=== PATIENT | male | born 1970 | race Caucasian/White ===

== ENCOUNTER 2016-08-28 12:21 | Emergency (ER) | payer OTHER ==
--- NOTE | 2016-08-28 14:28 | DIAGNOSTIC IMAGING REPORT ---
PROCEDURE: US ABDOMEN ULTRASOUND-LIMITED INDICATION: RUQ PAIN TECHNIQUE: Elder scale and color Doppler sonographic images were obtained of the right upper quadrant. COMPARISON: 11/12/2015 FINDINGS: The liver is normal in size, contour, and echotexture. No mass or biliary dilatation. The gallbladder is normal without stones or sludge. Normal wall thickness at 1.8 mm. No pericholecystic fluid or Fall's sign. Normal common duct at 5 mm. The visible portion of the inferior vena cava, abdominal aorta, and portal vein appear normal with appropriate direction of flow in the portal vein. The right kidney is normal measuring 10.5 cm. No free fluid in the right upper quadrant. IMPRESSION: 1. Normal right upper quadrant ultrasound.
--- NOTE | 2016-08-28 17:53 | ED CLINICAL REPORT ---
Clinical Report - Physicians/Mid Levels [facility] [address] [place] [address] 08/28/2016 12:22 Patient: ROLANDO MAGUIRE Time Seen: 12:47 Aug 16 2016. Arrived- By private vehicle. HISTORY OF PRESENT ILLNESS Chief Complaint: ABDOMINAL PAIN and FLANK PAIN. This started months, worsening today. It is described as "pain" and it is described as located in the right flank. No nausea or loss of appetite. (patient reports right-sided abdominal pain over the last year, worsening over the last few days, unable to walk as pain is severe. Patient denies any nausea vomiting diarrhea. Reports similar history of pain. Denies any dysuria, urgency or frequency. Patient denies any sick contacts. Reports history of hepatitis C. Unclear per patient of how he contracted such. Patient reports history of attending a liver clinic, however has not attended centrally over the last few months, due to some appointment issues. Denies taking any medications. Denies drinking. Patient uses marijuana.). REVIEW OF SYSTEMS No constipation, difficulty with urination, pain with urination or chest pain. All systems otherwise negative, except as recorded above. PAST HISTORY Problems: Abdominal Pain. Hepatitis. Contact Dermatitis. Wound Check. Laceration. Corneal Abrasion. Eye Pain. Contusion. Puncture Wound. Healing Abscess. Cellulitis. Abscess. Infections. Immunizations. Acute Pain. Tetanus Status. MRSA Infection. Neck Pain. Back Pain. Knee pain. Additional Surgeries: Laparotomy. Medications: None. Allergies: No Known Drug Allergy. SOCIAL HISTORY History of drug use: marijuana. No alcohol use. ADDITIONAL NOTES The nursing notes have been reviewed. PHYSICAL EXAM Vital Signs: 08/28/2016 12:36 BP: 131/81. HR: 67. RR: 20. O2 saturation: 98%. Temp: 97.8 F. Pain level now: 10/10. Appearance: Alert. ENT: Ears normal. Nose normal. Neck: Normal inspection. Neck supple. CVS: Normal heart rate and rhythm. Heart sounds normal. Respiratory: No respiratory distress. Breath sounds normal. No decreased air movement. Abdomen: Moderate tenderness in the right upper quadrant and right side of the abdomen. No guarding or Fall's sign present. Back: Normal inspection. No CVA tenderness. Skin: Skin warm. Normal skin color. Neuro: Oriented X 3. LABS, X-RAYS, AND EKG Abdominal CT: IMPRESSION: 1. Negative CT abdomen and pelvis. 2. Findings discussed with ANTONIO Yost. All CT scans at this facility use dose modulation, iterative reconstruction, and/or weight-based dosing when appropriate to reduce radiation dose to as low as reasonably achievable. Electronically Final signed by:Leroy Ford MD 08/28/2016 5:48:08 PM. Laboratory Tests: UA-Culture if indicated: (MIGUEL: 08/28/2016 14:05) ( [facility] 08/28/2016 14:54) Final results Test Result Flag Units (Reference) URINE COLOR YELLOW URINE APPEARANCE CLEAR URINE GLUCOSE NEGATIVE (NEGATIVE) URINE BILIRUBIN NEGATIVE (NEGATIVE) URINE KETONE NEGATIVE (NEGATIVE) URINE SPECIFIC GRAVITY 1.015 (1.010-1.030) URINE PH 7.0 (5.0-8.0) URINE PROTEIN NEGATIVE (NEGATIVE) URINE UROBILINOGEN 0.2 EU/dL (0.2-1.0) URINE NITRITE NEGATIVE (NEGATIVE) URINE BLOOD NEGATIVE (NEGATIVE) URINE LEUK ESTERASE NEGATIVE (NEGATIVE) URINE RBC RARE rbc/hpf (0-1) URINE WBC NONE SEEN wbc/hpf (0-1) URINE EPITHELIAL CELLS RARE EPI/hpf (0-5) URINE BACTERIA NONE SEEN (NONE SEEN) URINE COMMENT CULT NOT INDICATED URINE CULTURES ARE SET-UP BASED ON THE FOLLOWING CRITERIA:POSITIVE NITRITEPOSITIVE LEUKOCYTE ESTERASEGREATER THAN 10 WHITE BLOOD CELLSMODERATE (2+) OR GREATER BACTERIA CBC w Diff: (MIGUEL: 08/28/2016 12:45) ( [facility] 08/28/2016 13:06) Final results Test Result Flag Units (Reference) WHITE BLOOD COUNT 9.5 K/uL (4.5-11.5) RED BLOOD COUNT 5.23 M/uL (4.50-5.90) HEMOGLOBIN 15.7 gm/dL (13.5-17.5) HEMATOCRIT 46.6 % (41.0-53.0) MEAN CELL VOLUME 89 fL (80-100) MEAN CORPUSCULAR HGB 30 pg (26-34) MEAN CORPUSCULAR HGB CONC 34 g/dL (31-37) RED CELL DISTRIBUTION WIDTH 14.0 % (11.6-14.8) PLATELET COUNT 287 K/uL (150-400) NEUTROPHIL % 68.4 % (50-75) LYMPH % 23.2 L % (25-40) MONO % 5.6 % (3-14) EOSINOPHIL % 2.3 % (0-4) BASOPHIL % 0.5 % (0-2) CMP: (MIGUEL: 08/28/2016 12:45) ( MsgRcvd 08/28/2016 13:13) Final results Test Result Flag Units (Reference) GLUCOSE 117 H mg/dL (70-110) BUN 13 mg/dL (7-18) CREATININE 0.8 mg/dL (0.6-1.3) Estimated GFR >60 mL/min Estimated GFR- >60 mL/min Note: Persistent reduction over 3 months in eGFR<60 mL/min/1.73 m2 defines CKD. Patients with eGFR values>=60 mL/min/1.73 m2 may also have CKD if evidence ofpersistent proteinuria. Additional information may be foundat www.kidney.org. SODIUM 139 mmol/L (136-145) POTASSIUM 3.9 mmol/L (3.5-5.1) CHLORIDE 104 mmol/L (98-107) CARBON DIOXIDE 28 mmol/L (21-32) CALCIUM 8.3 L mg/dL (8.5-10.1) TOTAL PROTEIN 7.3 g/dL (6.4-8.2) ALBUMIN 3.8 g/dL (3.3-5.0) BILIRUBIN, TOTAL 0.4 mg/dL (0.0-1.0) ALKALINE PHOSPHATASE 61 U/L (46-116) AST (SGOT) 35 U/L (15-37) ALT (SGPT) 70 U/L (12-78) LIPASE 109 U/L (73-393) . Note - Tests: (US: abd limited: IMPRESSION: 1. Normal right upper quadrant ultrasound. Electronically Final signed by:Bryanna Hammond MD 08/28/2016 2:28:16 PM). PROGRESS AND PROCEDURES Course of Care: During the time in the ED, the following DDX were considered: acute surgical abdomen, hemodynamic or metabolic instability, dehydration, gastroenteritis-viral, food borne, or bacterial, food intolerance, irritable or inflammatory bowel, infection, sepsis. 08/28/2016 17:50 BP: 113/74. HR: 60. RR: 18. O2 saturation: 98%. Temp: 98.4 F. Patient is stable. Symptoms better. Patient/family counseled. Disposition: Discharged. CLINICAL IMPRESSION Acute right upper quadrant abdominal pain of unknown cause. INSTRUCTIONS Drink plenty of fluids. (follow up with your DR Address: [address] [place] [id number] ). Prescription Medications: Zofran (orally disintegrating tablets) 4 mg: take 1 orally every 6 hours for 3 days as needed for nausea. Dispense ten (10). No refill. Substitution is permissible. (Electronically signed by Veronica Betts P.A.-C 08/28/2016 18:11)
--- NOTE | 2016-08-28 17:53 | ED ORDER SUMMARY ---
..... Patient: ROLANDO MAGUIRE OrderSheet [facility]ly [facility] VisitID: [id number] [place] [address] 46y, M Registration Date/Time: 08/28/2016 ORDER SHEET Weight: 79.3 kg (stated) Allergies: No Known Drug Allergy GENERAL ORDERS: US Abdomen Limited (No) Urgent (12:43 08/28/2016 EKoroleva P.A.-C) (Ack 12:47 OSnell) (14:13 OSnell) CBC w Diff Urgent (12:43 08/28/2016 EKoroleva P.A.-C) (Ack 12:47 OSnell) (12:51 MWinterer R.N.) CMP Urgent (12:43 08/28/2016 EKoroleva P.A.-C) (Ack 12:47 OSnell) (12:51 MWinterer R.N.) UA-Culture if indicated Urgent (12:43 08/28/2016 EKoroleva P.A.-C) (Ack 12:47 OSnell) (14:11 MWinterer R.N.) Lipase Urgent (12:43 08/28/2016 EKoroleva P.A.-C) (Ack 12:47 OSnell) (12:52 MWinterer R.N.) NPO (12:44 08/28/2016 EKoroleva P.A.-C) (12:46 SRoberts R.N.) (Ack 12:47 OSnell) Vitals (15:26 08/28/2016 EKoroleva P.A.-C) (Ack 15:27 OSnell) (17:51 SRoberts R.N.) CT Abd/Pel w Cont (No) (N/A) Urgent (16:44 08/28/2016 EKoroleva P.A.-C) (Ack 16:49 OSnell) (17:09 MWinterer R.N.) Vitals (17:40 08/28/2016 EKoroleva P.A.-C) (Ack 17:41 OSnell) (17:51 SRoberts R.N.) MEDICATION ORDERS: IV FLUIDS: IV NS : initial bolus 1000 mL (1000 mL/hr), then 10 mL/hr for X1 (NOW); Chip (12:43 08/28/2016 EKoroleva P.A.-C) (13:02 SRoberts R.N.) Morphine IV 4 mg (HIGH ALERT MEDICATION, NOW) (12:43 08/28/2016 EKoroleva P.A.-C) (13:03 SRoberts R.N.) Zofran IV 4 mg (NOW) (12:44 08/28/2016 EKoroleva P.A.-C) (13:02 SRoberts R.N.) Toradol IV 30 mg (NOW) (17:40 08/28/2016 EKoroleva P.A.-C) (18:08 SRoberts R.N.) ORDER SHEET NOTES: [Electronically signed by Veronica Betts PSierraASierra-C (18:11 08/28/2016)] [Electronically signed by Vanessa Javier R.N. (20:01 08/28/2016)] [Electronically locked/signed by Vanessa Javier R.N. (20:01 08/28/2016)]
--- NOTE | 2016-08-28 17:53 | ED NURSING NOTES ---
Clinical Report - Nurses [facility] [place] [address] 08/28/2016 12:22 Patient: ROLANDO MAGUIRE TRIAGE Triage time 12:36. Acuity: LEVEL 3. Chief Complaint: ABDOMINAL PAIN and (Rt side abd and in the back). Alert. No acute distress. SEPSIS SCREEN: Sepsis Screen: negative. Negative (no infection suspected/documented). --12:43 Vanessa Javier R.N. 12:36 08/28/16. BP: 131/81. HR: 67. RR: 20. O2 saturation: 98%. Temp: 97.8 F. Pain level now: 11/22. --12:43 Vanessa Javier R.N. 12:36 08/28/16. BP: 131/81. HR: 67. RR: 20. O2 saturation: 98%. Temp: 97.8 F. Pain level now: 11/22. --12:44 Vanessa Javier R.N. Weight: 79.3 kg stated. Height/Length: 68 inches Per Patient. BMI: 26.6. --12:42 Vanessa Javier R.N. Medications None. --12:41 Vanessa Javier R.N. Allergies No Known Drug Allergy. --12:41 Vanessa Javier R.N. Medication/allergy information source: the patient. --12:43 Vanessa Javier R.N. History Arrived by private vehicle. Historian: patient. This is a recurrent problem and onset was gradual. (1 year, recently, last week got worse.). He has had nausea and moderate, constant abdominal pain. The pain is described as located in the RUQ, right side of the abdomen and RLQ and radiating to the back. Treatment EMPLOYEE RELATIONS MANAGER: None. PAST MEDICAL HX: Immunizations: up-to-date. SOCIAL HX: History of drug use: marijuana. Recently used drugs yesterday. FALL RISK ASSESSMENT: Fall risk assessment completed. No fall risk identified. NUTRITIONAL RISK ASSESSMENT: The nutritional risk assessment revealed no deficiencies. FUNCTIONAL ASSESSMENT: Functional assessment: no impairments noted. LEARNING NEEDS ASSESSMENT: The learning needs assessment revealed no barriers. SKIN INTEGRITY ASSESSMENT: Skin integrity risk assessment completed. No skin integrity risk identified. --12:43 Vanessa Javier R.N. PROBLEMS: Abdominal Pain. Hepatitis. Contact Dermatitis. Wound Check. Laceration. Corneal Abrasion. Eye Pain. Contusion. Puncture Wound. Healing Abscess. Cellulitis. Abscess. Infections. Immunizations. Acute Pain. Tetanus Status. MRSA Infection. Neck Pain. Back Pain. Knee pain. --12:38 Vanessa Javier R.N. Interventions ID band on patient. To room. --12:43 Vanessa Javier R.N. PHYSICAL ASSESSMENT Ambulatory to room. Patient gowned. GENERAL / NEURO / PSYCH: Alert. Oriented X 4. Appears in pain and anxious. HEENT: Mucous membranes are pink. RESPIRATORY: Respirations not labored. CVS: Capillary refill less than 2 seconds. GI / : Abdomen nontender. SKIN: Skin is warm and dry. --12:43 Vanessa Javier R.N. NURSING PROGRESS NOTES Patient gowned. Head of bed elevated. Two patient identifiers checked. Call light placed in reach. Side rails up x 2. Bed placed in lowest position. Brakes of bed on. Patient ready for evaluation. --12:44 Vanessa Javier R.N. 12:48 08/28/2016 Site #1 started via IV in the left forearm with an 20g angiocath, with aseptic technique and good blood return; one attempt. Blood drawn: rainbow set. Labeled in the presence of the patient and sent to the lab. Saline lock flushed with 10 mL saline. --12:53 AliM 12:52 08/28/2016 Started bag #1 1000 mL IV Fluids IV NS (Saline); at 1000 mL/hr via site #1 via IV pump. Allergies verified and confirmed 5 rights. IV patency established. IV site checked: no pain, redness, or swelling. IV flushed thoroughly pre- and post-medication administration. --13:02 Vanessa Javier R.N. 12:52 08/28/2016 Zofran (Ondansetron HCl) IVP 4 mg given over 1 minute(s) via site #1. Allergies verified and confirmed 5 rights. IV patency established. IV site checked: no pain, redness, or swelling. IV flushed thoroughly pre- and post-medication administration. IVP given by RN. --13:02 Vanessa Javier R.N. 12:58 08/28/2016 Morphine IVP 4 mg given over 1 minute(s) via site #1. Allergies verified, confirmed 5 rights and sedative warning given to the patient. IV patency established. IV site checked: no pain, redness, or swelling. IV flushed thoroughly pre- and post-medication administration. IVP given by RN. --13:03 Vanessa Javier R.N. 14:15 08/28/2016 IV Fluids IV NS Discontinued: bag #1 infused. Total amount infused: 1000 mL. IV patency established. IV site checked: no pain, redness, or swelling. IV flushed thoroughly. --14:15 Jessi Sharpe R.N. 15:35 08/28/16. BP: 111/58. HR: 58. RR: 18. O2 saturation: 100%. Pain level now: 09/22. 14:24 08/28/16. BP: 130/70. HR: 78. RR: 18. O2 saturation: 99% on room air. Pain level now: 09/22. --15:46 Vanessa Javier R.N. 17:50 08/28/16. BP: 113/74. HR: 60. RR: 18. O2 saturation: 98%. Temp: 98.4 F. --17:50 Elvira Blum 17:43 08/28/2016 Site #1 removed upon discharge. Catheter intact. Bandaid applied. --18:09 Vanessa Javier R.N. 17:45 08/28/2016 Toradol IVP 30 mg given. via site #1. Allergies verified and confirmed 5 rights. IV patency established. IV site checked: no pain, redness, or swelling. IV flushed thoroughly pre- and post-medication administration. IVP given by RN. --18:08 Vanessa Javier R.N. DISPOSITION / DISCHARGE 17:55. Condition at departure: improved. No learning barriers present. Discharge instructions provided and reviewed with the patient. Patient verbalized understanding. Written instructions provided in Ghanaian. The patient was discharged home. He left the Emergency Department ambulatory and via private vehicle. Patient driving. Medication list reviewed and validated. --18:10 Vanessa Javier R.N. 17:50 08/28/16. BP: 113/74. HR: 60. RR: 18. O2 saturation: 98%. Temp: 98.4 F. 15:35 08/28/16. BP: 111/58. HR: 58. RR: 18. O2 saturation: 100%. Pain level now: 09/22. 14:24 08/28/16. BP: 130/70. HR: 78. RR: 18. O2 saturation: 99% on room air. Pain level now: 09/22. 12:36 08/28/16. BP: 131/81. HR: 67. RR: 20. O2 saturation: 98%. Temp: 97.8 F. Pain level now: 11/22. --18:10 Vanessa Javier R.N. Locked/Released at 08/28/2016 20:01 by Vanessa Javier R.N.
--- NOTE | 2016-08-28 17:53 | ED ORDER SUMMARY ---
..... Patient: ROLANDO MAGUIRE OrderSheet [facility] VisitID: [id number] [place] [address] 46y, M Registration Date/Time: 08/28/2016 ORDER SHEET Weight: 79.3 kg (stated) Allergies: No Known Drug Allergy GENERAL ORDERS: US Abdomen Limited (No) Urgent (12:43 08/28/2016 EKoroleva P.A.-C) (Ack 12:47 OSnell) (14:13 OSnell) CBC w Diff Urgent (12:43 08/28/2016 EKoroleva P.A.-C) (Ack 12:47 OSnell) (12:51 MWinterer R.N.) CMP Urgent (12:43 08/28/2016 EKoroleva P.A.-C) (Ack 12:47 OSnell) (12:51 MWinterer R.N.) UA-Culture if indicated Urgent (12:43 08/28/2016 EKoroleva P.A.-C) (Ack 12:47 OSnell) (14:11 MWinterer R.N.) Lipase Urgent (12:43 08/28/2016 EKoroleva P.A.-C) (Ack 12:47 OSnell) (12:52 MWinterer R.N.) NPO (12:44 08/28/2016 EKoroleva P.A.-C) (12:46 SRoberts R.N.) (Ack 12:47 OSnell) Vitals (15:26 08/28/2016 EKoroleva P.A.-C) (Ack 15:27 OSnell) (17:51 SRoberts R.N.) CT Abd/Pel w Cont (No) (N/A) Urgent (16:44 08/28/2016 EKoroleva P.A.-C) (Ack 16:49 OSnell) (17:09 MWinterer R.N.) Vitals (17:40 08/28/2016 EKoroleva P.A.-C) (Ack 17:41 OSnell) (17:51 SRoberts R.N.) MEDICATION ORDERS: IV FLUIDS: IV NS : initial bolus 1000 mL (1000 mL/hr), then 10 mL/hr for X1 (NOW); Chip (12:43 08/28/2016 EKoroleva P.A.-C) (13:02 SRoberts R.N.) Morphine IV 4 mg (HIGH ALERT MEDICATION, NOW) (12:43 08/28/2016 EKoroleva P.A.-C) (13:03 SRoberts R.N.) Zofran IV 4 mg (NOW) (12:44 08/28/2016 EKoroleva P.A.-C) (13:02 SRoberts R.N.) Toradol IV 30 mg (NOW) (17:40 08/28/2016 EKoroleva P.A.-C) (18:08 SRoberts R.N.) ORDER SHEET NOTES: [Electronically signed by Veronica Betts PSierraASierra-C (18:11 08/28/2016)] [Electronically signed by Vanessa Javier R.N. (20:01 08/28/2016)] [Electronically locked/signed by Vanessa Javier R.N. (20:01 08/28/2016)]
--- NOTE | 2016-08-28 17:54 | DIAGNOSTIC IMAGING REPORT ---
PROCEDURE: CT ABD/PELVIS WITH CONTRAST INDICATION: Right abdominal pain. TECHNIQUE: 125 ml of Isovue 300 were injected intravenously and axial images were obtained of the entire abdomen and pelvis with sagittal and coronal reformations. COMPARISON: Compared ultrasound gallbladder right upper quadrant earlier in the day (08/28/2016). FINDINGS: ABDOMEN: Gallbladder, liver, spleen, pancreas, kidneys, and aorta are normal. Bowel pattern is normal, including appendix. There are mild degenerative changes of the lumbar spine. PELVIS: Pelvic structures are normal. No evidence of free fluid. IMPRESSION: 1. Negative CT abdomen and pelvis. 2. Findings discussed with ANTONIO Yost. All CT scans at this facility use dose modulation, iterative reconstruction, and/or weight-based dosing when appropriate to reduce radiation dose to as low as reasonably achievable.
--- NOTE | 2016-08-28 20:01 | ED MED RECONCILIATION SUMMARY ---
Patient: ROLANDO MAGUIRE Medication Reconciliation Report [facility] VisitID: [id number] [place] [address] 46y, M Registration Date/Time: 08/28/2016 Weight: 79.3 kg Height/Length: 68 in. BMI: 26.6 ALLERGIES: No Known Drug Allergy The patient's Home Medications are listed below: NONE. The source(s) of the original Home Medication information: patient The following Medications were given to the patient in the Emergency Department: IV NS IV Fluids bolus 0, then 1000 mL/hr, administered: 08/28/2016 12:52:00 PM Zofran [IVP] IVP 4 mg, administered: 08/28/2016 12:52:00 PM Morphine [IVP] IVP 4 mg, administered: 08/28/2016 12:58:00 PM Toradol [IVP] IVP 30 mg, administered: 08/28/2016 5:45:00 PM The following Medications were prescribed to the patient: Zofran (orally disintegrating tablets) 4 mg: take 1 orally every 6 hours for 3 days as needed for nausea. Dispense ten (10). No refill. Substitution is permissible. -- Veronica Betts, BubbaC
--- NOTE | 2016-08-28 20:01 | ED MAR SUMMARY ---
..... Medication Administration Record [facility] [address] [place] [address] Patient: ROLANDO MAGUIRE Visit ID: [id number] 46y, M Weight: 79.3 kg Height/Length: 68 in BMI: 26.6 ALLERGIES: No Known Drug Allergy Start 12:52 08/28/2016 Vanessa Javier R.N., Stop 14:15 08/28/2016 Jessi Sharpe R.N. Medication Administered: IV NS (SALINE), Dose: IV Fluids, Rate: 1000 mL/hr, Dispensed: 1000 mL bag, Site: #1 left forearm. Medication Ordered: IV NS : initial bolus 1000 mL (1000 mL/hr), then 10 mL/hr for X1 (NOW); Chip. Given 12:52 08/28/2016 Vanessa Javier R.N. Medication Administered: ZOFRAN [IVP] (ONDANSETRON HCL), Dose: 4 mg IVP over 1 minute(s), Site: #1 left forearm. Medication Ordered: Zofran IV 4 mg (NOW). Given 12:58 08/28/2016 Vanessa Javier R.N. Medication Administered: MORPHINE [IVP], Dose: 4 mg IVP over 1 minute(s), Site: #1 left forearm. Medication Ordered: Morphine IV 4 mg (HIGH ALERT MEDICATION, NOW). Given 17:45 08/28/2016 Vanessa Javier R.N. Medication Administered: TORADOL [IVP], Dose: 30 mg IVP, Site: #1. Medication Ordered: Toradol IV 30 mg (NOW).
--- NOTE | 2016-08-28 20:01 | ED DISCHARGE INSTRUCTIONS ---
Patient: ROLANDO MAGUIRE General Instructions [facility] VisitID: [id number] [place] [address] 46y, M Registration Date/Time: 08/28/2016 Acute right upper quadrant abdominal pain of unknown cause. INSTRUCTIONS Drink plenty of fluids. (follow up with your DR Address: [address] [place] [address] ). Prescription Medications: Zofran (orally disintegrating tablets) 4 mg: take 1 orally every 6 hours for 3 days as needed for nausea. Dispense ten (10). No refill. Substitution is permissible. ADDITIONAL INFORMATION Abdominal Pain,Uncertain Cause [Male] Based on your visit today, the exact cause of your abdominalpain is not clear. Your exam and tests do not indicate a dangerous cause at this time. However, the signs of a serious problem may take more time to appear. Although your evaluation was reassuring today, sometimes early in the course of many conditions, exam and lab tests can appear normal. Therefore, it is important for you to watch for any new symptoms or worsening of your condition. Causes It may not be obvious what caused your symptoms. Pay attention to things that do seem to make your symptoms worse or better and discuss this with your doctor when you follow up. Diagnosis The evaluation of abdominal pain in the emergency department may onlyrequire an exam by the doctor or it may include blood, urine or imaging studies, depending on many factors. Sometimes exams and tests can identify a cause but in many cases, a clear cause is not found. Further testing at follow up visits may help to suggest a clear diagnosis. Home Care Rest as much as possible until your next exam. Try to avoid any medications (unless otherwise directed by your doctor), foods, activities, or other factors that you may have contributed to your symptoms. Try to eat foods that you know that you have tolerated well in the past. Certain diets may be recommended for some conditions that cause abdominal pain. However, since the cause of your symptoms may not be clear, discuss your diet more with your primary care provider or specialist for further recommendations. Eating several small meals per day as opposed to 2 or 3 larger meals may help. Monitor closely for anything that may make your symptoms worse or better. Pay close attention to symptoms below that may indicate worsening of your condition. Follow Up and Precautions See your doctoras instructed or sooneror if your symptoms are not improving.In some cases, you may need more testing. When to Seek Medical Attention Contact your doctor or see medical attention ifany of the following occur: Pain is becoming worse You are unable to take your medications due to excessive vomiting Swelling of the abdomen Fever of 100.4F (38C) or higher, or as directed by your health care provider Blood in vomit or bowel movements (dark red or black color) Jaundice (yellow color of eyes and skin) New onset of weakness, dizziness or fainting New onset of chest, arm, back, neck or jaw pain Epigastric Pain (Uncertain Cause) Epigastric pain can be a sign of disease in the upper abdomen. Common causes include: Acid reflux (stomach acid flowing up into the esophagus) Gastritis (irritation of the stomach lining) Peptic Ulcer Disease Inflammation of the pancreas Gallstone Infection in the gallbladder Pain may be dull or burning. It may spread upward to the chest or to the back. There may be other symptoms such as belching, bloating, cramps or hunger pains. There may be weight loss or poor appetite, nausea or vomiting. Since the diagnosis of your pain is not certain yet, further tests will be needed. Sometimes the doctor will treat you for the most likely condition to see if there is improvement before doing further tests. Home Care: Unless told otherwise, you may try antacids (Mylanta or Maalox) help neutralize stomach acid. This may relieve your pain. Take 1-2 tablespoons or tablets one hour after meals and at bedtime. The liquid form coats the stomach better than the chewable tablets and is preferred. If Tagamet (cimetidine), Zantac (ranitidine), or Carafate (sucralfate) has also been prescribed, allow one hour between taking this medicine and taking the antacids. Avoid foods that irritate the stomach. Follow a light diet until you are feeling better. Avoid alcohol, caffeine, and tobacco. Talk to your doctor before taking any [id number] medicine that contains aspirin or an anti-inflammatory drug such as ibuprofen, Advil, Motrin, Naprosyn, or Aleve. Follow Up with your doctor or as advised if you do not improve over the next 48 hours. Get Prompt Medical Attention if any of the following occur: Stomach pain worsens or moves to the right lower part of the abdomen Chest pain appears, or if it worsens or spreads to the chest, back, neck, shoulder, or arm Frequent vomiting (cant keep down liquids) Blood in the stool or vomit (red or black color) Feeling weak or dizzy, fainting, or having trouble breathing Fever of 100.4F (38C) or higher, or as directed by your healthcare provider Abdominal swelling Symptoms With Uncertain Cause [Adult] Based on the exam and any tests that were performed today, the exact cause of your symptoms is not certain. While your condition does not seem serious, the signs of a serious problem may take more time to appear. Therefore, it is important for you to watch for any new symptoms or worsening of your condition.Follow up with your doctor or this facility, as directed.A repeat physical exam or additional testing at a later time may uncover a cause for your symptoms that is not evident today. Home Care: Resume your usual activities and diet when this feels comfortable to do so. Follow Up with your doctor, or as advised by our staff.Contact your doctor sooner if your symptoms do not begin to improve in the next few days. [NOTE: If you had an x-ray, CT scan, ultrasound, or ECG (electrocardiogram), it will be reviewed by a specialist. You will be notified of any new findings that may affect your care.] Get Prompt Medical Attention if any of the following occur: Current symptoms get worse New symptoms appear You have been given the following additional information: Abdominal Pain, Unknown Cause, (Male) Epigastric Pain (Uncertain Cause) Symptoms With Uncertain Cause (Electronically signed by Veronica Betts P.A.-C 08/28/2016 18:11)
--- NOTE | 2016-08-28 20:01 | ED MAR SUMMARY ---
..... Medication Administration Record [facility] [address] [place] [address] Patient: ROLANDO MAGUIRE Visit ID: [id number] 46y, M Weight: 79.3 kg Height/Length: 68 in BMI: 26.6 ALLERGIES: No Known Drug Allergy Start 12:52 08/28/2016 Vanessa Javier R.N., Stop 14:15 08/28/2016 Jessi Sharpe R.N. Medication Administered: IV NS (SALINE), Dose: IV Fluids, Rate: 1000 mL/hr, Dispensed: 1000 mL bag, Site: #1 left forearm. Medication Ordered: IV NS : initial bolus 1000 mL (1000 mL/hr), then 10 mL/hr for X1 (NOW); Chip. Given 12:52 08/28/2016 Vanessa Javier R.N. Medication Administered: ZOFRAN [IVP] (ONDANSETRON HCL), Dose: 4 mg IVP over 1 minute(s), Site: #1 left forearm. Medication Ordered: Zofran IV 4 mg (NOW). Given 12:58 08/28/2016 Vanessa Javier R.N. Medication Administered: MORPHINE [IVP], Dose: 4 mg IVP over 1 minute(s), Site: #1 left forearm. Medication Ordered: Morphine IV 4 mg (HIGH ALERT MEDICATION, NOW). Given 17:45 08/28/2016 Vanessa Javier R.N. Medication Administered: TORADOL [IVP], Dose: 30 mg IVP, Site: #1. Medication Ordered: Toradol IV 30 mg (NOW).
--- NOTE | 2016-08-28 20:01 | ED MED RECONCILIATION SUMMARY ---
Patient: ROLANDO MAGUIRE Medication Reconciliation Report [facility] VisitID: [id number] [place] [address] 46y, M Registration Date/Time: 08/28/2016 Weight: 79.3 kg Height/Length: 68 in. BMI: 26.6 ALLERGIES: No Known Drug Allergy The patient's Home Medications are listed below: NONE. The source(s) of the original Home Medication information: patient The following Medications were given to the patient in the Emergency Department: IV NS IV Fluids bolus 0, then 1000 mL/hr, administered: 08/28/2016 12:52:00 PM Zofran [IVP] IVP 4 mg, administered: 08/28/2016 12:52:00 PM Morphine [IVP] IVP 4 mg, administered: 08/28/2016 12:58:00 PM Toradol [IVP] IVP 30 mg, administered: 08/28/2016 5:45:00 PM The following Medications were prescribed to the patient: Zofran (orally disintegrating tablets) 4 mg: take 1 orally every 6 hours for 3 days as needed for nausea. Dispense ten (10). No refill. Substitution is permissible. -- Veronica Betts, BubbaC
== END 2016-08-28 17:55 | disposition home or self-care (01) ==
LOC: ED SRH 12:21
DX: R10.11 Right upper quadrant pain (principal); K75.9 Inflammatory liver disease, unspecified
CPT/HCPCS: 90004; 90100; 92235; 95059